=== PATIENT | female | born 1935 | race Caucasian/White ===

== ENCOUNTER 2016-11-28 17:17 | Emergency (ER) | payer MEDICARE, BC | END 2016-11-28 18:54 | disposition left against medical advice (07) | LOC: DL.ED 17:17 | DX: Z53.21 Procedure and treatment not carried out due to patient leaving prior to being seen by health care provider (principal) ==

== ENCOUNTER 2017-12-08 05:20 | Emergency (ER) | payer MEDICARE, BC ==
[2017-12-08 05:37] VITALS: BP 158/84
--- NOTE | 2017-12-08 05:40 | EDM.PDOC ---
ED HPI GENERAL MEDICAL PROBLEM - General Chief Complaint: Genitourinary Problem Stated Complaint: UNABLE TO URINATE. [phone] Time Seen by Provider: 12/08/17 05:37 Source of Information: Reports: Patient History Limitations: Reports: No Limitations - History of Present Illness INITIAL COMMENTS - FREE TEXT/NARRATIVE: c/o incontinence all day. was Dx UTI @ [facility] last week admitted due to high wbc d/ c with cipro still taking it. denies dysuria some urgency can only give small sample. Bladder Pain Score (Numeric/FACES): 2 - Related Data Allergies Allergy/AdvReac Type Severity Reaction Status Date / Time propranolol Allergy Nausea Verified 12/08/17 05:38 Sulfa (Sulfonamide Allergy Nausea Verified 12/08/17 05:38 Antibiotics) Home Meds: Home Meds glipiZIDE/Metformin HCl [GlipiZIDE-Metformin 5-500 MG] 0.5 each PO DAILY [History] Amitriptyline [Elavil] 10 mg PO DAILY 09/11/16 [History] Benazepril HCl [Lotensin] 40 mg PO DAILY 09/11/16 [History] Furosemide 20 mg PO DAILY 09/11/16 [History] Isosorbide Mononitrate [Imdur] 30 mg PO DAILY 09/11/16 [History] Metoprolol Succinate [Toprol XL] 25 mg PO DAILY 09/11/16 [History] Simvastatin [Zocor] 40 mg PO DAILY 09/11/16 [History] glipiZIDE/Metformin HCl [GlipiZIDE-Metformin 5-500 MG] 1.5 each PO BEDTIME 09/11 [History] Cefpodoxime [Vantin] 100 mg PO BID 12/08/17 [History] Levothyroxine [Synthroid] 50 mcg PO ACBREAKFAST 12/08/17 [History] Past Medical History Cardiovascular History: Reports: High Cholesterol, Hypertension Endocrine/Metabolic History: Reports: Diabetes, Type II - Infectious Disease History Infectious Disease History: Reports: Chicken Pox, Measles, Mumps - Past Surgical History Cardiovascular Surgical History: Reports: None Endocrine Surgical History: Reports: None Social & Family History - Family History Family Medical History: Unobtainable - Caffeine Use Caffeine Use: Reports: Coffee ED ROS GENERAL - Review of Systems Review Of Systems: ROS reveals no pertinent complaints other than HPI. ED EXAM, RENAL/ - Physical Exam Exam: See Below Exam Limited By: No Limitations General Appearance: Alert, WD/WN, No Apparent Distress, Other (upset) Ears: Hearing Grossly Normal Throat/Mouth: No Airway Compromise Head: Atraumatic Neck: Non-Tender, Full Range of Motion Respiratory/Chest: No Respiratory Distress Cardiovascular: Regular Rate, Rhythm GI/Abdominal: Soft, Non-Tender, Other (minor suprapubic discomfort) Neurological: Alert, Oriented, Normal Cognition, Normal Gait, No Motor/Sensory Deficits Psychiatric: Normal Affect, Normal Mood Skin Exam: Warm, Dry, Normal Color Lymphatic: No Adenopathy Course - Vital Signs Last Recorded V/S: Last Vital Signs Temp 36.3 C 12/08/17 05:26 Pulse 80 12/08/17 05:26 Resp 19 12/08/17 05:26 BP 158/84 H 12/08/17 05:26 Pulse Ox 97 12/08/17 05:26 - Orders/Labs/Meds Orders: Active Orders 24 hr Category Date Time Status UA W/MICROSCOPIC [URIN] Stat Lab 12/08/17 05:29 Ordered Nitrofurantoin [place]/Macrocryst [Macrobid] Med 12/08/17 06:26 Once 100 mg PO ONETIME ONE Phenazopyridine [Urinary Pain Relief] Med 12/08/17 06:26 Once 95 mg PO ONETIME ONE Medication Orders Nitrofurantoin Macrocrystals (Macrobid) 100 mg PO ONETIME ONE Stop: 12/08/17 06:27 Phenazopyridine HCl (Urinary Pain Relief) 95 mg PO ONETIME ONE Stop: 12/08/17 06:27 Labs: Laboratory Tests 12/08/17 Range/Units 05:29 Urine Color Yellow (YELLOW) Urine Appearance Clear (CLEAR) Urine pH 7.5 (5.0-9.0) Ur Specific [place] 1.015 (1.005-1.030) Urine Protein Negative (NEGATIVE) Urine Glucose (UA) Negative (NEGATIVE) Urine Ketones Negative (NEGATIVE) Urine Occult Blood Negative (NEGATIVE) Urine Nitrite Negative (NEGATIVE) Urine Bilirubin Negative (NEGATIVE) Urine Urobilinogen 0.2 (0.2-1.0) mg/dL Ur Leukocyte Esterase Large H (NEGATIVE) Urine RBC 0-5 /HPF Urine WBC 10-20 H (0-5/HPF) /HPF Ur Epithelial Cells Few /HPF Urine Bacteria Rare (0-FEW/HPF) /HPF Urinalysis Comment See note Meds: Medications Generic Name Dose Route Start Last Admin Trade Name Carlitos PRN Reason Stop Dose Admin Nitrofurantoin Macrocrystals 100 mg 12/08/17 06:26 Macrobid PO 12/08/17 06:27 ONETIME ONE Phenazopyridine HCl 95 mg 12/08/17 06:26 Urinary Pain Relief PO 12/08/17 06:27 ONETIME ONE - Re-Assessments/Exams Free Text/Narrative Re-Assessment/Exam: 12/08/17 06:28 results discussed with pt. Departure - Departure Time of Disposition: 06:28 Disposition: Home, Self-Care 01 Condition: Good Clinical Impression: UTI, Urinary tract infectious disease - Discharge Information Instructions: Urinary Tract Infection, Adult, [id number] Referrals: Boy Mathias NP [Primary Care Provider] - Forms: ED Department Discharge Additional Instructions: 1) try cranberry juice 2) see clinic to recheck urine 3) return if there is any change or concern rx given; macrobid 100mg bid x 20 pyridium 100mg tid x 12 - My Orders Last 24 Hours: My Active Orders 12/08/17 05:29 UA W/MICROSCOPIC [URIN] Stat 12/08/17 06:26 Nitrofurantoin [place]/Macrocryst [Macrobid] 100 mg PO ONETIME ONE Phenazopyridine [Urinary Pain Relief] 95 mg PO ONETIME ONE - Assessment/Plan Last 24 Hours: My Active Orders 12/08/17 05:29 UA W/MICROSCOPIC [URIN] Stat 12/08/17 06:26 Nitrofurantoin [place]/Macrocryst [Macrobid] 100 mg PO ONETIME ONE Phenazopyridine [Urinary Pain Relief] 95 mg PO ONETIME ONE
[2017-12-08] MEDS ORDERED: Nitrofurantoin Monohydrate/Macrocrystalline 100 MG Cap PO ONE (06:26)
[2017-12-08] MEDS ORDERED: Phenazopyridine 95 MG Tab PO ONE (06:26)
== END 2017-12-08 06:49 | disposition home or self-care (01) ==
LOC: DL.ED 05:20
DX: N39.0 Urinary tract infection, site not specified (principal); E78.00 Pure hypercholesterolemia, unspecified; I10 Essential (primary) hypertension; E11.9 Type 2 diabetes mellitus without complications; Z88.2 Allergy status to sulfonamides; Z88.8 Allergy status to other drugs, medicaments and biological substances; Z79.899 Other long term (current) drug therapy
CPT/HCPCS: 81001; 99283; A9270

== ENCOUNTER 2017-12-14 11:30 | Emergency (ER) | payer MEDICARE, BC ==
[2017-12-14 12:43] VITALS: BP 137/78
--- NOTE | 2017-12-14 13:46 | CR ---
Clinical history: 82-year-old female clinical question of "constipation". Interpretation: Acute abdominal series (flat and upright films) confirm some stool scattered in the a scending right, descending left and sigmoid colon (mild obstipation). No sign of foreign body, abdominal soft tissue mass lesion, pathologic calcifications or mechanical b owel obstruction. Normal cardiac silhouette. Lung bases clear. No free subdiaphragmatic air.
--- NOTE | 2017-12-15 07:52 | EDM.PDOC ---
Scribed by Melanie Helton 12/14/17 1346 for Rosio Thomson NP ED HPI GENERAL MEDICAL PROBLEM - General Chief Complaint: Gastrointestinal Problem Stated Complaint: [id number] -NO BOWEL MOVEMENT Time Seen by Provider: 12/14/17 12:51 Source of Information: Reports: Patient, RN, RN Notes Reviewed History Limitations: Reports: No Limitations - History of Present Illness INITIAL COMMENTS - FREE TEXT/NARRATIVE: Patient presents to ER with abdominal cramping. Patient states her last bowel movement (normal) was 7-8 days ago.She has had some "jess". Abdominal cramping has resolved. Tool a laxative last night. She has been lightheaded, dizzy, weak and tired. She has had no fever, chills, nausea, vomiting,diarrhea, chest pain and shortness of breath. Two weeks at [facility] she had a UTI with elevated WBC and fever. She could not urinate. She was sent home with meds and stool softeners. Onset: Gradual Duration: Getting Worse Quality: Reports: Ache Severity: Moderate Improves with: Reports: None Worsens with: Reports: None Associated Symptoms: Reports: No Other Symptoms - Related Data Allergies Allergy/AdvReac Type Severity Reaction Status Date / Time propranolol Allergy Nausea Verified 12/14/17 12:40 Sulfa (Sulfonamide Allergy Nausea Verified 12/14/17 12:40 Antibiotics) Home Meds: Home Meds glipiZIDE/Metformin HCl [GlipiZIDE-Metformin 5-500 MG] 0.5 each PO DAILY [History] Amitriptyline [Elavil] 10 mg PO DAILY 09/11/16 [History] Benazepril HCl [Lotensin] 40 mg PO DAILY 09/11/16 [History] Furosemide 20 mg PO DAILY 09/11/16 [History] Isosorbide Mononitrate [Imdur] 30 mg PO DAILY 09/11/16 [History] Metoprolol Succinate [Toprol XL] 25 mg PO DAILY 09/11/16 [History] Simvastatin [Zocor] 40 mg PO DAILY 09/11/16 [History] glipiZIDE/Metformin HCl [GlipiZIDE-Metformin 5-500 MG] 1.5 each PO BEDTIME 09/11 [History] Cefpodoxime [Vantin] 100 mg PO BID 12/08/17 [History] Levothyroxine [Synthroid] 50 mcg PO ACBREAKFAST 12/08/17 [History] Past Medical History HEENT History: Reports: Impaired Vision Cardiovascular History: Reports: High Cholesterol, Hypertension Endocrine/Metabolic History: Reports: Diabetes, Type II, Hypothyroidism - Infectious Disease History Infectious Disease History: Reports: Chicken Pox, Measles, Mumps - Past Surgical History Cardiovascular Surgical History: Reports: None Endocrine Surgical History: Reports: None Social & Family History - Family History Family Medical History: Unobtainable - Tobacco Use Smoking Status *Q: Never Smoker Second Hand Smoke Exposure: No - Caffeine Use Caffeine Use: Reports: Coffee - Recreational Drug Use Recreational Drug Use: No ED ROS GENERAL - Review of Systems Review Of Systems: ROS reveals no pertinent complaints other than HPI. ED EXAM, GI/ABD - Physical Exam Exam: See Below Exam Limited By: No Limitations General Appearance: Alert, WD/WN, No Apparent Distress Eyes: Bilateral: Normal Appearance, EOMI Ears: Normal External Exam, Normal Canal, Hearing Grossly Normal, Normal TMs Nose: Normal Inspection, Normal Mucosa, No Blood Throat/Mouth: Normal Inspection, Normal Lips, Normal Teeth, Normal Gums, Normal Oropharynx, Normal Voice, No Airway Compromise Head: Atraumatic, Normocephalic Neck: Normal Inspection, Supple, Non-Tender, Full Range of Motion Respiratory/Chest: No Respiratory Distress, Lungs Clear, Normal Breath Sounds, No Accessory Muscle Use, Chest Non-Tender Cardiovascular: Normal Peripheral Pulses, Regular Rate, Rhythm, No Edema, No Gallop, No JVD, No Murmur, No Rub GI/Abdominal Exam: Normal Bowel Sounds, Soft, Non-Tender, No Organomegaly, No Distention, No Abnormal Bruit, No Mass, Pelvis Stable (Female) Exam: Deferred Rectal (Female) Exam: Deferred Back Exam: Normal Inspection, Full Range of Motion, NT Extremities: Normal Inspection, Normal Range of Motion, Non-Tender, Normal Capillary Refill, No Pedal Edema Neurological: Alert, Oriented, CN II-XII Intact, Normal Cognition, Normal Gait, Normal Reflexes, No Motor/Sensory Deficits Psychiatric: Normal Affect Skin Exam: Warm, Dry, Intact, Normal Color, No Rash Lymphatic: No Adenopathy Course - Vital Signs Last Recorded V/S: Last Vital Signs Temp 98.0 F 12/14/17 12:41 Pulse 74 12/14/17 12:41 Resp 16 12/14/17 12:41 BP 137/78 12/14/17 12:41 Pulse Ox 97 12/14/17 12:41 - Radiology Interpretation Free Text/Narrative:: Abdomen x-ray: Abdominal series confirm some stool scattered in the ascending right, descending left and sigmoid colon (mild obstipation). See rad report. Departure - Departure Time of Disposition: 13:45 Disposition: Home, Self-Care 01 Condition: Fair Clinical Impression: Obstipation - Discharge Information Instructions: Constipation, Adult, [id number] Referrals: Boy Mathias NP [Primary Care Provider] - Forms: ED Department Discharge Additional Instructions: Try Magnesium Citrate today. Use as directed Continue with stool softeners Follow up with your primary care facility Drink plenty of fluids I have read and agree with the documentation that has been completed regarding this visit. By signing this record, I attest that the documentation was completed in my physical presence and is an accurate record of the encounter.
== END 2017-12-14 13:51 | disposition home or self-care (01) ==
LOC: DL.ED 11:30
DX: K59.00 Constipation, unspecified (principal); I10 Essential (primary) hypertension; Z88.2 Allergy status to sulfonamides; Z88.8 Allergy status to other drugs, medicaments and biological substances; Z79.899 Other long term (current) drug therapy
CPT/HCPCS: 74019; 99282; 99284

== ENCOUNTER 2018-04-10 12:40 | Emergency (ER) | payer MEDICARE, BC ==
--- NOTE | 2018-04-10 12:44 | EDM.PDOC ---
ED HPI GENERAL MEDICAL PROBLEM - General Stated Complaint: chest pain [id number] Time Seen by Provider: 04/10/18 12:43 Source of Information: Reports: Patient, RN, RN Notes Reviewed - History of Present Illness INITIAL COMMENTS - FREE TEXT/NARRATIVE: Pt to ER with with c/o sudden onset chest pain and left arm pain. Patient states she feels she was hungry. Pain is subsided by the time the patient arrives in the ER. Patient denies any recent illness or cardiac history. She states she got diaphoretic when this happened. Denies radiation of pain into the neck or jaw. Onset: Today, Sudden Duration: Heavy, Improving Location: Reports: Chest, Upper Extremity, Left Quality: Reports: Ache, Sharp, Stabbing Severity: Moderate Improves with: Reports: None Worsens with: Reports: None Associated Symptoms: Reports: Chest Pain, Diaphoresis, Shortness of Breath, Weakness Left Chest Pain Score (Numeric/FACES): 7 - Related Data Allergies Allergy/AdvReac Type Severity Reaction Status Date / Time propranolol Allergy Nausea Verified 04/10/18 12:46 Sulfa (Sulfonamide Allergy Nausea Verified 04/10/18 12:46 Antibiotics) Home Meds: Home Meds glipiZIDE/Metformin HCl [GlipiZIDE-Metformin 5-500 MG] 0.5 each PO DAILY [History] Amitriptyline [Elavil] 10 mg PO DAILY 09/11/16 [History] Benazepril HCl [Lotensin] 40 mg PO DAILY 09/11/16 [History] Furosemide 20 mg PO DAILY 09/11/16 [History] Isosorbide Mononitrate [Imdur] 30 mg PO DAILY 09/11/16 [History] Metoprolol Succinate [Toprol XL] 25 mg PO DAILY 09/11/16 [History] Simvastatin [Zocor] 40 mg PO DAILY 09/11/16 [History] glipiZIDE/Metformin HCl [GlipiZIDE-Metformin 5-500 MG] 1.5 each PO BEDTIME 09/11 [History] Cefpodoxime [Vantin] 100 mg PO BID 12/08/17 [History] Levothyroxine [Synthroid] 50 mcg PO ACBREAKFAST 12/08/17 [History] Past Medical History HEENT History: Reports: Impaired Vision Cardiovascular History: Reports: High Cholesterol, Hypertension Endocrine/Metabolic History: Reports: Diabetes, Type II, Hypothyroidism - Infectious Disease History Infectious Disease History: Reports: Chicken Pox, Measles, Mumps - Past Surgical History Cardiovascular Surgical History: Reports: None Endocrine Surgical History: Reports: None Social & Family History - Family History Family Medical History: Unobtainable - Caffeine Use Caffeine Use: Reports: Coffee ED ROS GENERAL - Review of Systems Review Of Systems: ROS reveals no pertinent complaints other than HPI. ED EXAM, GENERAL - Physical Exam Exam: See Below Exam Limited By: No Limitations General Appearance: Alert, WD/WN, Moderate Distress Eye Exam: Bilateral Eye: EOMI, Normal Inspection Ears: Normal External Exam, Hearing Grossly Normal Nose: Normal Inspection Throat/Mouth: Normal Inspection, Normal Voice, No Airway Compromise Head: Atraumatic, Normocephalic Neck: Normal Inspection, Supple, Non-Tender, Full Range of Motion Respiratory/Chest: No Respiratory Distress, Lungs Clear, Normal Breath Sounds, No Accessory Muscle Use, Chest Non-Tender Cardiovascular: Normal Peripheral Pulses, Regular Rate, Rhythm, No Edema, No Gallop, No JVD, No Murmur, No Rub Peripheral Pulses: 2+: Radial (L), Radial (R) GI/Abdominal: Normal Bowel Sounds, Soft, Tender (Generalized, RLQ) (Female) Exam: Deferred Rectal (Female) Exam: Deferred Back Exam: Normal Inspection, Full Range of Motion Extremities: Normal Inspection, Normal Range of Motion, Non-Tender, No Pedal Edema, Normal Capillary Refill, Arm Pain (Left arm pain improving) Neurological: Alert, Oriented, CN II-XII Intact, Normal Cognition, Normal Gait, Normal Reflexes, No Motor/Sensory Deficits Psychiatric: Anxious Skin Exam: Warm, Dry, Intact, Normal Color, No Rash Lymphatic: No Adenopathy EKG INTERPRETATION EKG Date: 04/10/18 Time: 12:48 Rhythm: NSR Rate (Beats/Min): 67 [place]: Normal P-Wave: Present QRS: Normal ST-T: Normal QT: Normal Comparison: No Change Course - Vital Signs Last Recorded V/S: Last Vital Signs Temp 99.6 F 04/10/18 19:26 Pulse 62 04/10/18 19:26 Resp 18 04/10/18 19:26 BP 132/72 04/10/18 19:26 Pulse Ox 95 04/10/18 19:26 - Orders/Labs/Meds Orders: Active Orders 24 hr Category Date Time Status EKG Documentation Completion [RC] STAT Care 04/10/18 12:51 Active EKG Documentation Completion [RC] STAT Care 04/10/18 17:00 Active Peripheral IV Care [RC] . DIRECTED Care 04/10/18 12:51 Active Peripheral IV Insertion Adult [OM.PC] Stat Oth 04/10/18 12:51 Ordered Labs: Laboratory Tests 04/10/18 04/10/18 04/10/18 Range/Units 12:48 13:03 13:03 WBC 6.2 (5.0-10.0) 10^3/uL RBC 3.79 L (4.2-5.4) 10^6/uL Hgb 11.5 L (12.0-16.0) g/dL Hct 35.4 L (37.0-47.0) % MCV 93.4 (80-100) fL MCH 30.3 (27.0-34.0) pg MCHC 32.5 L (33.0-35.0) g/dL Plt Count 184 (150-450) 10^3/uL Neut % (Auto) 74.4 (42.2-75.2) % Lymph % (Auto) 15.8 L (20.5-50.1) % Scott % (Auto) 7.4 (2-8) % Eos % (Auto) 1.8 (1.0-3.0) % Baso % (Auto) 0.6 (0.0-1.0) % Sodium 136 (135-145) mmol/L Potassium 3.5 L (3.6-5.0) mmol/L Chloride 99 L (101-111) mmol/L Carbon Dioxide 25.0 (21.0-31.0) mmol/L Anion Gap 15.5 BUN 25 H (7-18) mg/dL Creatinine 1.1 (0.6-1.3) mg/dL Est Cr Clr Drug Dosing 34.26 mL/min Estimated GFR (MDRD) 47 BUN/Creatinine Ratio 22.72 Glucose 172 H (74-105) mg/dL POC Glucose 147 H (83-110) mg/dl Calcium 9.4 (8.4-10.2) mg/dl Total Bilirubin 0.7 (0.2-1.0) mg/dL AST 26 (10-42) IU/L ALT 16 (10-60) IU/L Alkaline Phosphatase 56 (42-121) IU/L Troponin I < 0.02 (0.00-0.02) ng/ml Total Protein 7.4 (6.7-8.2) g/dl Albumin 4.2 (3.2-5.5) g/dl Globulin 3.2 Albumin/Globulin Ratio 1.31 Urine Color (YELLOW) Urine Appearance (CLEAR) Urine pH (5.0-9.0) Ur Specific [place] (1.005-1.030) Urine Protein (NEGATIVE) Urine Glucose (UA) (NEGATIVE) Urine Ketones (NEGATIVE) Urine Occult Blood (NEGATIVE) Urine Nitrite (NEGATIVE) Urine Bilirubin (NEGATIVE) Urine Urobilinogen (0.2-1.0) mg/dL Ur Leukocyte Esterase (NEGATIVE) Urine RBC /HPF Urine WBC (0-5/HPF) /HPF Ur Epithelial Cells /HPF Urine Bacteria (0-FEW/HPF) /HPF 04/10/18 04/10/18 Range/Units 14:23 17:02 WBC (5.0-10.0) 10^3/uL RBC (4.2-5.4) 10^6/uL Hgb (12.0-16.0) g/dL Hct (37.0-47.0) % MCV (80-100) fL MCH (27.0-34.0) pg MCHC (33.0-35.0) g/dL Plt Count (150-450) 10^3/uL Neut % (Auto) (42.2-75.2) % Lymph % (Auto) (20.5-50.1) % Scott % (Auto) (2-8) % Eos % (Auto) (1.0-3.0) % Baso % (Auto) (0.0-1.0) % Sodium (135-145) mmol/L Potassium (3.6-5.0) mmol/L Chloride (101-111) mmol/L Carbon Dioxide (21.0-31.0) mmol/L Anion Gap BUN (7-18) mg/dL Creatinine (0.6-1.3) mg/dL Est Cr Clr Drug Dosing mL/min Estimated GFR (MDRD) BUN/Creatinine Ratio Glucose (74-105) mg/dL POC Glucose (83-110) mg/dl Calcium (8.4-10.2) mg/dl Total Bilirubin (0.2-1.0) mg/dL AST (10-42) IU/L ALT (10-60) IU/L Alkaline Phosphatase (42-121) IU/L Troponin I < 0.02 (0.00-0.02) ng/ml Total Protein (6.7-8.2) g/dl Albumin (3.2-5.5) g/dl Globulin Albumin/Globulin Ratio Urine Color Yellow (YELLOW) Urine Appearance Clear (CLEAR) Urine pH 6.5 (5.0-9.0) Ur Specific [place] 1.015 (1.005-1.030) Urine Protein Negative (NEGATIVE) Urine Glucose (UA) Negative (NEGATIVE) Urine Ketones Negative (NEGATIVE) Urine Occult Blood Negative (NEGATIVE) Urine Nitrite Negative (NEGATIVE) Urine Bilirubin Negative (NEGATIVE) Urine Urobilinogen 0.2 (0.2-1.0) mg/dL Ur Leukocyte Esterase Small H (NEGATIVE) Urine RBC 0-5 /HPF Urine WBC 0-5 (0-5/HPF) /HPF Ur Epithelial Cells Rare /HPF Urine Bacteria Rare (0-FEW/HPF) /HPF Meds: Medications Discontinued Medications Generic Name Dose Route Start Last Admin Trade Name Antq PRN Reason Stop Dose Admin Aspirin 324 mg 04/10/18 12:51 04/10/18 13:03 Aspirin PO 04/10/18 12:52 324 mg ONETIME ONE Administration Morphine Sulfate 2 mg 04/10/18 12:52 04/10/18 13:04 Morphine IVPUSH 04/10/18 12:53 2 mg ONETIME ONE Administration Sodium Chloride 10 ml 04/10/18 12:51 04/10/18 13:03 Saline Flush FLUSH 10 ml ASDIRECTED PRN Administration Keep Vein Open - Radiology Interpretation Free Text/Narrative:: Chest xray: No acute findings See rad report Departure - Departure Time of Disposition: 17:54 Disposition: Home, Self-Care 01 Condition: Good Clinical Impression: Nonspecific chest pain, Non-cardiac chest pain Instructions: Nonspecific Chest Pain, [id number] Referrals: PCP,None [Primary Care Provider] - Forms: ED Department Discharge Additional Instructions: Return to the ER with any further problems. Follow up with your primary care facility - My Orders Last 24 Hours: My Active Orders 04/10/18 12:51 EKG Documentation Completion [RC] STAT Peripheral IV Care [RC] . DIRECTED Peripheral IV Insertion Adult [OM.PC] Stat 04/10/18 17:00 EKG Documentation Completion [RC] STAT - Assessment/Plan Last 24 Hours: My Active Orders 04/10/18 12:51 EKG Documentation Completion [RC] STAT Peripheral IV Care [RC] . DIRECTED Peripheral IV Insertion Adult [OM.PC] Stat 04/10/18 17:00 EKG Documentation Completion [RC] STAT
[2018-04-10] MEDS ORDERED: Aspirin 81 MG Tab.Chew PO ONE (12:51)
[2018-04-10] MEDS ORDERED: Sodium Chloride 0.9% 10 ML Syringe FLUSH PRN (12:51)
[2018-04-10] MEDS ORDERED: Morphine 2 MG/ML Syringe IVPUSH ONE (12:52)
[2018-04-10 13:33] LABS: ANION GAP 15.5; CHLORIDE,CL 99 mmol/L (101-111); SODIUM,NA 136 mmol/L (135-145)
--- NOTE | 2018-04-10 14:13 | CR ---
Clinical history: 82-year-old female chest pain Interpretation: Chronic coarse accentuation perihilar lung markings and ectasia dorsal aorta unchange d 11 September 2016 exam. Normal cardiac silhouette without new signs of alveolar edema or dependent effusion. No new lung mass, focal lobar pneumonia or atelectasis/collapse. No pneumothorax. CONCLUSION: No acute new cardiopulmonary abnormality.
[2018-04-10 19:25] VITALS: BP 132/72
== END 2018-04-10 18:47 | disposition home or self-care (01) ==
LOC: DL.ED 12:40
DX: R07.9 Chest pain, unspecified (principal); I10 Essential (primary) hypertension; E11.9 Type 2 diabetes mellitus without complications; E78.00 Pure hypercholesterolemia, unspecified; E03.9 Hypothyroidism, unspecified; Z79.899 Other long term (current) drug therapy; Z79.84 Long term (current) use of oral hypoglycemic drugs; Z88.2 Allergy status to sulfonamides; Z88.8 Allergy status to other drugs, medicaments and biological substances
CPT/HCPCS: 36415; 71045; 80053; 81001; 82962; 84484; 85025; 93005; 96374; 99285; A9270; J2270; J7050

== ENCOUNTER 2021-01-22 14:20 | Emergency (ER) | payer MEDICARE, BC ==
[2021-01-22 15:42] VITALS: PULSE 68
[2021-01-22 16:23] VITALS: BP 149/72
--- NOTE | 2021-01-22 16:41 | EDM.PDOC ---
Scribed by Melanie Helton 01/22/21 1640 Molly Thompson MD ED HPI GENERAL MEDICAL PROBLEM - General Chief Complaint: General Stated Complaint: SURGERY AREA SWOLLEN LOWER ABDOMIN Time Seen by Provider: 01/22/21 16:22 Source of Information: Reports: Patient, RN, RN Notes Reviewed History Limitations: Reports: No Limitations - History of Present Illness INITIAL COMMENTS - FREE TEXT/NARRATIVE: Patient presents to ED with abdominal bulge in her right lower abdomen. She noted it last night while she was taking a shower and decided to come in for further evaluation. She has had similar abdominal bulge that was also painful and resulted in emergent surgery. Patient was advised to watch for recurring bulging, which prompted her to come in today. Patient denies any pain in the area and does note that it is soft and is able to be pushed back in. No fevers or chills. Regular bowel movement. No other acute concerns. Onset Date: 01/21/21 Duration: Constant Location: Reports: Abdomen Quality: Reports: Ache Severity: Mild Improves with: Reports: None Worsens with: Reports: None Associated Symptoms: Reports: No Other Symptoms - Related Data Allergies Allergy/AdvReac Type Severity Reaction Status Date / Time propranolol Allergy Nausea Verified 01/22/21 15:32 Sulfa (Sulfonamide Allergy Nausea Verified 01/22/21 15:32 Antibiotics) Home Meds: Home Meds glipiZIDE/Metformin HCl [GlipiZIDE-Metformin 5-500 MG] 0.5 each PO DAILY 03/04/16 [History] Amitriptyline [Elavil] 10 mg PO DAILY 09/11/16 [History] Benazepril HCl [Lotensin] 40 mg PO DAILY 09/11/16 [History] Furosemide 20 mg PO DAILY 09/11/16 [History] Isosorbide Mononitrate [Imdur] 30 mg PO DAILY 09/11/16 [History] Metoprolol Succinate [Toprol XL] 25 mg PO DAILY 09/11/16 [History] Simvastatin [Zocor] 40 mg PO DAILY 09/11/16 [History] glipiZIDE/Metformin HCl [GlipiZIDE-Metformin 5-500 MG] 1.5 each PO BEDTIME 09/11/16 [History] Cefpodoxime [Vantin] 100 mg PO BID 12/08/17 [History] Levothyroxine [Synthroid] 50 mcg PO ACBREAKFAST 12/08/17 [History] Ondansetron [Zofran ODT] 4 mg PO Q8H PRN #15 tab.dis 07/18/18 [Rx] Past Medical History HEENT History: Reports: Impaired Vision Cardiovascular History: Reports: High Cholesterol, Hypertension Endocrine/Metabolic History: Reports: Diabetes, Type II, Hypothyroidism - Infectious Disease History Infectious Disease History: Reports: Chicken Pox, Measles, Mumps - Past Surgical History Cardiovascular Surgical History: Reports: None Endocrine Surgical History: Reports: None Social & Family History - Family History Family Medical History: Unobtainable - Tobacco Use Tobacco Use Status *Q: Never Tobacco User Second Hand Smoke Exposure: No - Caffeine Use Caffeine Use: Reports: Coffee - Recreational Drug Use Recreational Drug Use: No ED ROS GENERAL - Review of Systems Review Of Systems: Comprehensive ROS is negative, except as noted in HPI. ED EXAM, GENERAL - Physical Exam Exam: See Below Exam Limited By: No Limitations General Appearance: Alert, WD/WN, No Apparent Distress Head: Atraumatic, Normocephalic Respiratory/Chest: No Respiratory Distress, Lungs Clear, Normal Breath Sounds, No Accessory Muscle Use, Chest Non-Tender Cardiovascular: Normal Peripheral Pulses, Regular Rate, Rhythm, No Edema, No Ga llop, No JVD, No Murmur, No Rub GI/Abdominal: Soft, Non-Tender, Hernia (right lower abdominal wall soft, easily reducible.). No: Guarding, Rebound Back Exam: Normal Inspection Extremities: Normal Inspection Neurological: Alert, Oriented, CN II-XII Intact, Normal Cognition, Normal Gait, No Motor/Sensory Deficits Psychiatric: Normal Affect, Normal Mood Course - Vital Signs Last Recorded V/S: Last Vital Signs Temp 98.5 F 01/22/21 16:22 Pulse 68 01/22/21 16:22 Resp 18 01/22/21 16:22 BP 149/72 H 01/22/21 16:22 Pulse Ox 98 01/22/21 16:22 Departure - Departure Time of Disposition: 16:37 Disposition: Home, Self-Care 01 Condition: Good Clinical Impression: Abdominal wall hernia - Discharge Information *PRESCRIPTION DRUG MONITORING PROGRAM REVIEWED*: Not Applicable *COPY OF PRESCRIPTION DRUG MONITORING REPORT IN PATIENT YSABEL: Not Applicable Instructions: Hernia, Adult, [id number] Forms: ED Department Discharge Additional Instructions: Avoid heavy lifting if possible. Wear belly band for support. Follow up with your doctor. If area becomes hard and painful, you can return to the ER. Sepsis Event Note (ED) - Evaluation Sepsis Screening Result: No Definite Risk - Focused Exam Vital Signs: Vital Signs Temp Pulse Resp BP Pulse Ox 01/22/21 16:22 98.5 F 68 18 149/72 H 98 01/22/21 15:33 98.1 F 68 16 153/69 H 97 I have read and agree with the documentation that has been completed regarding this visit. By signing this record, I attest that the documentation was completed in my physical presence and is an accurate record of the encounter.
== END 2021-01-22 16:50 | disposition home or self-care (01) ==
LOC: DL.ED 14:20
DX: K43.6 Other and unspecified ventral hernia with obstruction, without gangrene (principal); E78.00 Pure hypercholesterolemia, unspecified; I10 Essential (primary) hypertension; E11.9 Type 2 diabetes mellitus without complications; E03.9 Hypothyroidism, unspecified; Z79.899 Other long term (current) drug therapy; Z88.8 Allergy status to other drugs, medicaments and biological substances; Z88.2 Allergy status to sulfonamides
CPT/HCPCS: 99283